=== PATIENT | male | born 1975 | race Caucasian/White ===

== ENCOUNTER 2017-01-06 14:00 | Outpatient (CLI) | payer MEDICAID ==
[~2017-01-06 14:00] MED LIST: ASPI-999 PO; CHLO25TA22 PO; CLON0.2T PO; CYAN500T44 PO; HYDR-3922 PO; LISI-552 PO; MAGN400T39 PO; METO-333 PO; PANT40TA3 PO; PARO-49 PO
== END 2017-01-06 14:28 | disposition home or self-care (01) ==
LOC: SLEEP 14:00
PROVIDERS: ATTEND Nurse Practitioner Family
DX: G47.33 Obstructive sleep apnea (adult) (pediatric) (principal); I10 Essential (primary) hypertension

== ENCOUNTER 2017-02-19 20:15 | Outpatient (CLI) | payer MEDICAID | END 2017-02-20 06:45 | disposition home or self-care (01) | LOC: SLEEP 20:15 | PROVIDERS: ATTEND Nurse Practitioner Family | DX: G47.10 Hypersomnia, unspecified (principal) | CPT/HCPCS: 95810 ==